=== PATIENT | female | born 1990 | race Caucasian/White ===

== ENCOUNTER 2017-11-28 14:33 | Emergency (ER) | payer SELFPAY ==
[~2017-11-28] VITALS: Ht 167.6 cm; Wt 113.4 kg
[~2017-11-28 14:33] MED LIST: ACET1TAB12; ALBU17AE3 IH; AMOX500C2 PO; AZIT-21 PO; CLAR-19 PO; LOPE2TAB17 PO; PRD20T PO; PREN1TAB39; PROP1TAB77; [UNRECOGNIZED DRUG - CODE]
--- OUTSIDE RECORDS SUMMARY | 2017-11-28 14:42 | XMS REPORT ---
Author Author ALEC DAVIDSON Organization [employer] Address Unknown Phone Unavailable Care Team Providers Care Membership Manager Name Role Phone ALEC DAVIDSON CP Unavailable Allergies, Adverse Reactions, Alerts Substance Reaction Event Type N.K.D.A. 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 [place] [address]-21 5-325 MG Orally every 6 hrs Aug 26, 2015 Aug 30, 2015 1 tablet as needed Amoxicillin [facility] [place] [address]-60 500 MG Orally every 6 hours Aug 26, 2015 Sep 05, 2015 1 tablet Procedures Procedure Coding System Code Date INTRAORL-PERIAPICAL 1 FILM 91034 CPT-4 D0220 Aug 26, 2015 BITEWING - SINGLE FILM CPT-4 D0270 Aug 26, 2015 LTD ORAL EVALUATION - PROBLEM FOCUS CPT-4 D0140 Aug 26, 2015 EXTRAC ERUPTED TOOTH/EXPOSED ROOT CPT-4 D7140 Aug 26, 2015 Vital Signs Date/Time: Aug 26, 2015 Blood Pressure Diastolic 62 mmHg Blood Pressure Systolic 105 mmHg Height 66 in Results No Known Results Summary Purpose [employer] Submission
--- OUTSIDE RECORDS SUMMARY | 2017-11-28 14:42 | XMS REPORT ---
Author Author MATIAS ALLEN [employer] Address Unknown Phone Unavailable Care Team Providers Care Call Worker Name Role Phone MATIAS ALLEN CP Unavailable Allergies, Adverse Reactions, Alerts Substance Reaction Event Type N.K.D.A. Info Not Available Non Drug Allergy Problems Problem Type Condition Code Onset Dates Condition Status Assessment Dental caries K02.9 Active Problem Lumbago [...] Instructions Start Date End Date Status Dosage Motrin IB [facility] [address]-34 600 Orally every 6 hrs November 20, 2015November 1 tablet as needed Amoxicillin [facility] [address]-81 500 MG Orally Three times a day 1 capsule Procedures Procedure Coding System Code Date EXTRAC ERUPTED TOOTH/EXPOSED ROOT CPT-4 D7140 November 20, 2015 Vital Signs Date/Time: November 21, 2015 Blood Pressure Diastolic 93 mmHg Blood Pressure Systolic 118 mmHg Results No Known Results Summary Purpose [employer] Submission
[2017-11-28 17:17] VITALS: BP 0/0
== END 2017-11-28 17:17 | disposition left against medical advice (07) ==
LOC: EDUNIT# 14:33 → ER 14:35
DX: K04.7 Periapical abscess without sinus (principal)
CPT/HCPCS: 99281; 99282